=== PATIENT | male | born 1955 | race Caucasian/White ===

== ENCOUNTER → 2018-10-21 | Outpatient (CLI) | payer OTHER ==
--- NOTE | 2018-10-21 10:58 | KCIC ---
EYE FOR FOREIGN BODY History: MRI screening, previous metal to the left eye Comparison: None. Findings: 2 views of the orbits are submitted. No metallic foreign body is identified in the region of orbits. Impression: 1. There is no metallic foreign body in the region of orbits. Electronically signed by: Bryan Contreras MD (10/21/2018 10:55 AM) [id number]
--- NOTE | 2018-10-21 12:09 | KCIC ---
MRI Lumbar Spine without contrast History: Lumbago, felt a pop in lower back recently, pain into the right hip Technique: Multiplanar, multi sequential noncontrast MR imaging was performed of the lumbar spine. Comparison: None Findings: There is recent T12 compression fracture with edema signified by STIR hyperintense and T1 hypointense signal, no significant osseous retropulsion. There is trace edema of the anterior, inferior corner T11 not associated with significant height loss. Conus terminates at L1-2. There is moderate degenerative disc disease L1-L2, minimally L2-3 through L4-5. There is negligible posterior subluxation L1 relative to L2. T11-12: Spinal canal and neural foramina are adequate. T12-L1: Neural foramina and spinal canal are adequate. L1-L2: There is negligible disc osteophyte complex and bulge. Spinal canal and the neural foramina are adequate. L2-L3: There is negligible disc osteophyte complex and bulge. There is mild buckling of the ligamentum flavum. Neural foramina and spinal canal are overall adequate. L3-L4: There is negligible disc osteophyte complex and bulge. There is mild buckling of the ligamentum flavum. Spinal canal is not significantly narrowed. Neural foramina are adequate. L4-L5: There is mild buckling of the ligamentum flavum and right greater than left facet degenerative change. There is minimal disc osteophyte complex and bulge. There is mild narrowing of the far lateral recesses bilaterally with degree of contact of the descending L5 nerve roots. There is very mild narrowing of the right neural foramen, left neural foramen overall adequate. L5-S1: Spinal canal and neural foramina are adequate. Impression: 1. There is a recent T12 compression fracture with associated marrow edema, no osseous retropulsion. There is trace edema of the anterior, inferior corner of T11 although no significant height loss. 2. There is moderate degenerative disc disease at L1-L2, minimally L2-3 through L4-5. 3. There is mild narrowing of the far lateral recesses bilaterally at L4-5. There is minimal narrowing of the right L4-5 neural foramen. Electronically signed by: Bryan Contreras MD (10/21/2018 12:06 PM) [id number]
== END | disposition home or self-care (01) ==
LOC: KCIC MRI 10:23
PROVIDERS: ATTEND Physician Assistant Medical
DX: M51.36 Other intervertebral disc degeneration, lumbar region (principal); M25.78 Osteophyte, vertebrae; M48.54XA Collapsed vertebra, not elsewhere classified, thoracic region, initial encounter for fracture; M48.061 Spinal stenosis, lumbar region without neurogenic claudication
CPT/HCPCS: 70030; 72148